=== PATIENT | female | born 1950 | race Two or more races ===

== ENCOUNTER 2025-04-08 21:23 | Emergency (ER) | payer MEDICARE, MEDICAID ==
[~2025-04-08] VITALS: Ht 157.5 cm; Wt 65.0 kg
[2025-04-08 21:39] VITALS: TEMP 97.9
[2025-04-08 22:31] VITALS: BP 155/86; PULSE 84; RESP 16; O2SAT 98
[2025-04-08] MEDS: IBUPROFEN 400 MG TABLET PO ONE (23:52)
[2025-04-08] MEDS: ACETAMINOPHEN 500 MG TABLET PO ONE (23:52)
[2025-04-08] MEDS: METOCLOPRAMIDE HCL 10 MG TABLET PO ONE (23:52)
[2025-04-09 00:04] LABS: PLATELET COUNT (AUTO) 311 K/uL (150-450); RED BLOOD CELL COUNT(AUTO) 4.40 MIL/uL (4.00-5.20); RED CELL DISTRIBUTION WIDTH 14.5 % (11.5-14.5); WHITE BLOOD COUNT (AUTO) 5.4 K/uL (4.5-11.0)
[2025-04-09 00:11] LABS: CALCIUM, TOTAL 9.3 mg/dL (8.8-10.5); CREATININE 0.61 mg/dL (0.60-1.30); GLOMERULAR FILTR. RATE CALC > 60 mL/min (>60); GLUCOSE,RANDOM 118 mg/dL (70-110); SODIUM SERUM 142 mmol/L (136-145); UREA NITROGEN, BLOOD 15 mg/dL (7-18)
[2025-04-09 00:19] LABS: TROPONIN I-HIGH SENSITIVITY 9 ng/L (<51)
[2025-04-09] MEDS ORDERED: HYDR25TA2 PO (01:16)
== END 2025-04-09 01:39 | disposition home or self-care (01) ==
LOC: EMS 21:23
DX: R51.9 Headache, unspecified (principal); I10 Essential (primary) hypertension; E78.00 Pure hypercholesterolemia, unspecified
CPT/HCPCS: 71045; 80048; 84484; 85025; 93005; 99285; 36415-L1; 36415-TC